=== PATIENT | female | born 1965 | race African-American/Black ===

== ENCOUNTER 2018-03-29 18:49 | Emergency (ER) | payer SELFPAY ==
[~2018-03-29] VITALS: Ht 162.6 cm; Wt 103.9 kg
[2018-03-29] MEDS ORDERED: LIDOCAINE HCL 1% 20ML VIAL (Pyxis) INJ INFIL ONE (23:15)
[2018-03-29] MEDS ORDERED: LIDOCAINE HCL/PF 1% 10 MG/ML 5ML VIAL IJ SCH (23:35)
[2018-03-30] MEDS ORDERED: ACETAMINOPHEN 500MG TABLET PO ONE (01:00)
[2018-03-30 01:09] VITALS: BP 150/73
== END 2018-03-30 01:09 | disposition home or self-care (01) ==
LOC: ER 21:33
DX: S80.861A Insect bite (nonvenomous), right lower leg, initial encounter (principal); L03.115 Cellulitis of right lower limb; W57.XXXA Bitten or stung by nonvenomous insect and other nonvenomous arthropods, initial encounter; Y93.9 Activity, unspecified; Y92.9 Unspecified place or not applicable
CPT/HCPCS: 10060; 93971; 99284; J3490